=== PATIENT | male | born 1965 ===

== ENCOUNTER 2019-10-02 07:45 | Inpatient (IN) | payer OTHER ==
[~2019-10-02] VITALS: Ht 170.2 cm; Wt 113.4 kg
[2019-10-02] MEDS ORDERED: CLONAZEPAM2 MG PO (07:50)
[2019-10-02] MEDS ORDERED: ZOLOFT100 MG PO (07:51)
[2019-10-02] MEDS ORDERED: DIOVAN40 MG PO (07:51)
[2019-10-10] MEDS ORDERED: PERCOCET 5-3251 EACH PO (12:58)
[2019-10-10] MEDS ORDERED: DUI500 PO (12:58)
[2019-10-10] MEDS ORDERED: ELIQUIS2.5 MG PO (12:58)
== END 2019-10-10 13:35 | DRG 468 ==
LOC: O/R 10-08 05:10 → SURG 10-08 05:10 → SURH 10-08 07:45 → O/R 10-08 07:45 → SURG 10-08 10:50 → SURH 10-08 14:30 → SURG 10-10 13:35
PROVIDERS: ADMIT Orthopaedic Surgery
PROC: 0SWD0JZ Revision of Synthetic Substitute in Left Knee Joint, Open Approach (ICD-10-PCS; principal; 2019-10-08 14:30)
DX: T84.033A Mechanical loosening of internal left knee prosthetic joint, initial encounter (principal); Y83.8 Other surgical procedures as the cause of abnormal reaction of the patient, or of later complication, without mention of misadventure at the time of the procedure; I10 Essential (primary) hypertension